=== PATIENT | male | born 1960 | race Caucasian/White ===

== ENCOUNTER 2024-08-17 10:04 | Emergency (ER) | payer MEDICAID, SELFPAY ==
--- NOTE | ~2024-08-17 | CT_ITS ---
EXAMINATION: CT HEAD WITHOUT CONTRAST CLINICAL INFORMATION: Cognitive decline. COMPARISON: None available. TECHNIQUE: Contiguous axial imaging was performed from the skull base to vertex without intravenous administration of contrast. This CT examination was performed using dose optimization techniques as appropriate, variously including the following: *Automated exposure control. *Adjustment of mA and/or kV according to patient size (this includes techniques or standardized protocols for targeted exams where dose is matched to indication/reason for exam; i.e. extremities or head). *Use of iterative reconstruction technique. DLP: 720 mGy-cm FINDINGS: There is no evidence of acute intracranial hemorrhage or edematous territorial infarction. 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 No additional loss of tinsley-white matter differentiation. Scattered and partially confluent hypoattenuation in the periventricular and deep white matter are consistent with mild to moderate microangiopathy. Proportional prominence of the ventricles and sulcal spaces without evidence of obstructive hydrocephalus. No abnormal mass effect or midline shift. No extra-axial fluid collections. No acute soft tissue or osseous abnormalities. Mild mucosal thickening of the paranasal sinuses. Mild rightward nasal septal deviation. The mastoid air cells and middle ear cavities are clear. CT/CT head/brain wo IV con IMPRESSION: 1. No evidence of acute intracranial hemorrhage or edematous territorial infarction. 2. Mild to moderate underlying microangiopathy and generalized cerebral volume loss. 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 Electronically signed by: Victor Manuel Rodriguez DO 08/18/2024 03:38 PM EDT
[2024-08-17 10:52] VITALS: BP 112/91; BP 122/84; PULSE 91; PULSE 92; RESP 16; TEMP 36.7; O2SAT 93; O2SAT 97; BMI 35.9
[2024-08-17 10:56] VITALS: RESP 14
--- NOTE | 2024-08-17 11:19 | ED_ITS ---
HPI - Psych General Chief Complaint: Psychiatric Symptoms Stated Complaint: SI W/PLAN PER EMS Time Seen by Provider: 08/17/24 10:59 Source: patient, EMS and old records reviewed Mode of arrival: EMS Limitations: no limitations History of Present Illness ED Provider: RUSTY LARKIN Narrative: 64 yo male with hypothyroidism, HTN, hyperlipidemia, depression states he is very depressed and is tired. He has SI and plan to walk into traffic. He notes increased life stress. He was seen at [facility] yesterday and DC home after talking to KAPOK MACHINE OPERATOR. MD complaint: suicidal ideation and feels depressed Onset (ago): week(s) Duration: getting worse History of same: Yes Relieving factors: none Exacerbating factors: other Context: significant life stressor Associated psychiatric symptoms: depression and suicidal ideation Associated symptoms: denies other symptoms Treatments prior to arrival: none If self harm: admits thoughts of self harm and has plan Related Data Home Medications ?Medication ?Instructions ?Recorded ?Confirmed albuterol 90 mcg/actuation aerosol 90 mcg inhalation QID PRN 08/17/24 08/17/24 inhaler Shortness Of Breath atorvastatin 40 mg tablet 40 mg PO DAILY 08/17/24 08/17/24 buspirone 15 mg tablet 15 mg PO TID 08/17/24 08/17/24 duloxetine 60 mg capsule,delayed 60 mg PO DAILY 08/17/24 08/17/24 release sprinkle gabapentin 400 mg capsule 400 mg PO TID 08/17/24 08/17/24 levothyroxine 25 mcg tablet 25 mcg PO DAILY 08/17/24 08/17/24 omeprazole 40 mg capsule,delayed 40 mg PO DAILY 08/17/24 08/17/24 release sennosides 8.6 mg tablet (senna) 17.2 mg PO DAILY 08/17/24 08/17/24 umeclidinium 62.5 mcg/actuation 1 inh inhalation DAILY 08/17/24 08/17/24 blister powder for inhalation (Incruse Ellipta) Allergies Allergy/AdvReac Type Severity Reaction Status Date / Time latex Allergy Hives Verified 08/17/24 10:54 Penicillins Allergy Anaphylaxis Verified 08/17/24 10:54 Review of Systems Review of Systems: Constitutional : No Fever, No Chills ENT/Mouth : No Ear Pain, No Nasal Congestion, No sore throat Eyes: No Eye Pain, No Swelling, No Redness Cardiovascular : No Chest Pain, No SOB Respiratory : No Cough, No Sputum, No Dyspnea Gastrointestinal : No Nausea, No Vomiting, No Diarrhea, No Hematochezia, No Melena Genitourinary : No Dysuria, No Urinary Frequency, No Hematuria Musculoskeletal : No Myalgias Skin : No Skin Lesions, No rash Neuro : No Weakness, No Numbness, No Paresthesias, No Dizziness, No Headache Psych : positive Anxiety, positive Depression, positive SI no HI Heme/Lymph: No Lymphadenopathy Endocrine : No Polyuria, No Polydipsia All other systems reviewed and are negative [facility] Past Medical History Attestation statement: The following information was validated with the patient. Source: old records reviewed Medical History (Updated 08/17/24 @ 11:32 by Karime Kaye DO) Hypothyroidism Depression Hyperlipidemia HTN (hypertension) Social History Social History Smoked in Last 30 Days: No Use of substances other than those prescribed or required for medical reasons: No Physical Exam Vital Signs: Vital Signs: Last Vital Signs Temp 98.0 F 08/17/24 10:52 Pulse 92 08/17/24 10:52 Resp 14 08/17/24 10:56 BP 112/91 H 08/17/24 10:52 Pulse Ox 93 08/17/24 10:52 O2 Del Method Room Air 08/17/24 10:52 BMI result Body Mass Index 35.9 Appearance: Alert. Oriented X3. No acute distress. Flat affect, withdrawn Eyes: Pupils equal, round and reactive to light. ENT: Pharynx normal. Neck: Normal inspection. Neck supple. CVS: Normal heart rate and rhythm. Pulses normal. Respiratory: No respiratory distress. Breath sounds normal. Abdomen: Soft and nontender. Skin: Skin warm and dry. Normal skin color. Normal skin turgor. Extremities: non pitting edema bilateral lower extremity No calf ttp Neuro: Oriented X 3. No motor deficit. No sensory deficit. CN2-12 intact Medical Decision Making Medical Decision Making MDM Narrative: 64 yo male with hypothyroidism, HTN, hyperlipidemia, depression here with depression and SI due to life stressors at this time will need basic labs, CARE team consult Differential Diagnosis Differential Diagnoses: The differential diagnosis associated with the presentation includes depression, poor social support SI Admission/Observation Consideration of admission/observation: Escalation of care including admission/observation considered physician observation started at 1130 pending CARE team Consult Healthcare Provider Management of the patient was discussed with: Behavioral Health Provider Lab Data MDM Lab Attestation statement: I reviewed the patient's lab results. Independent Historian Clinical information obtained from an independent historian. History obtained from or confirmed by: EMS External Record Review External record reviewed: Outpatient record Discharge Plan Discharge Clinical Impression: Depression Patient Disposition: Admitted As Inpatient Interventions: [place]-Suicide Risk Severity Scale Last Done: 08/17/24 10:57
--- NOTE | 2024-08-17 11:30 | PC.NURSE ---
Sudheer comes to the ED today reporting SI with a plan to walk into oncoming traffic. he reports that he recently lost his dad within the last year and has had other stressors that have caused him to have these suicidal thoughts. he reports he went to [facility] yesterday for the same chief complaint but was discharged back home. he denies any homicidal ideation or hallucinations at this time. Pt is calm and cooperative, help seeking. Pt verbalizes understanding of plan of care at this time
[2024-08-17 11:33] LABS: MANUAL DIFF FLAG NO
[2024-08-17 11:36] LABS: Appearance Urine Clear; Color Urine Yellow; Glucose Urine UA Negative (Negative); Leukocyte Esterase Urine Negative (Negative); Nitrite Urine Negative (Negative); PH 7.5 (5.0-9.0); Urine Blood Negative (Negative); Urine Ketones Negative (Negative); Urine Protein Negative (Neg-Trace)
[2024-08-17 11:42] LABS: Basophils Percent Auto 0.4 % (0-2); Eosinophils Absolute Auto 0.1 X10*3/uL (0.0-0.4); Eosinophils Percent Auto 1.1 % (0-4); Hematocrit 35.2 % (42.0-52.0); Hemoglobin 11.5 g/dl (14.0-18.0); Imm Gran Abs Auto 0.03 X10*3/uL (0.00-0.03); Imm Gran Pct Auto 0.5 % (0.0-0.4); Lymphocytes Absolute Auto 1.1 X10*3/uL (1.2-4.9); Lymphocytes Percent Auto 19.1 % (20-40); Mean Corpuscular HGB Conc 32.7 g/dl (31.0-36.0); Mean Corpuscular Hemoglobin 30.5 pg (27.0-33.0); Mean Corpuscular Volume 93.4 fL (80.0-98.0); Mean Platelet Volume 9.2 fL (9.4-12.4); Monocytes Absolute Auto 0.6 X10*3/uL (0.1-1.2); Monocytes Percent Auto 10.1 % (2-11); Neutrophils Absolute Auto 3.8 x10*3/uL (2.0-8.3); Neutrophils Percent Auto 68.8 % (45-73); Platelet Count 210 X10*3/uL (160-400); Red Blood Count 3.77 X10*6/uL (4.60-5.80); Red Cell Distribution Width 12.6 % (11.0-16.0); White Blood Count 5.6 X10*3/uL (4.8-10.8)
[2024-08-17 11:53] LABS: Alanine Aminotransferase 19 U/L (0-40); Alkaline Phosphatase 56 U/L (39-117); Anion Gap 11 (12-20); Aspartate Amino Transferase 19 U/L (5-37); Bilirubin Total 1.1 mg/dL (0.0-1.0); Blood Urea Nitrogen 17 mg/dL (9-16); Calcium 9.3 mg/dL (8.4-10.2); Carbon Dioxide 30 mmol/L (22-29); Chloride 103 mmol/L (96-108); Creatinine Clr Calc Pharmacy 109.5; Estimated Glomerular Filt Rate > 60; Ethanol < 10 mg/dL; Glucose Random 98 mg/dL (60-115); Potassium 4.5 mmol/L (3.3-5.1); Sodium 139 mmol/L (135-145); Total Protein 6.8 g/dL (6.5-8.0)
[2024-08-17 11:55] LABS: Amphetamine Screen Urine Not Detected (Not Detect); Barbiturates, Urine Not Detected (Not Detect); Benzodiazepines Screen Urine Not Detected (Not Detect); Buprenorphine Scr Not Detected (Not Detect); Cannabinoid Screen Urine Not Detected (Not Detect); Cocaine Screen Urine Not Detected (Not Detect); Fentanyl, urine Not Detected (Not Detect); Methadone Screen, Urine Not Detected (Not Detect); Opiate Screen Urine Not Detected (Not Detect); Oxycodone Screen Urine Not Detected (Not Detect); Phencyclidine Screen Urine Not Detected (Not Detect)
[2024-08-17 14:20] LABS: TSH reflex Free T4 1.87 uIU/mL (0.32-4.0)
--- NOTE | 2024-08-17 15:29 | MHC.CARE ---
Assessed by CARE team, following discussion with CARE service team leader Yvrose TEAGUE, plan for patient to be referred for psych consult given recent +3 month long admission to [facility].
--- NOTE | 2024-08-17 16:02 | MHC.CARE ---
A SANJUANA for [facility] has been signed by patient and is in his chart.
[2024-08-17 20:33] VITALS: BP 140/79; PULSE 79; RESP 18; TEMP 36.9; O2SAT 95
--- NOTE | 2024-08-17 23:23 | PC.NURSE ---
Took over for TSERING lal, pt sleeping at this time.
--- NOTE | 2024-08-18 04:11 | PC.NURSE ---
pt out of bed to bathroom, quiet and cooperative.
[2024-08-18 05:19] VITALS: BP 147/78; PULSE 78; RESP 18; TEMP 36.6; O2SAT 95
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
--- NOTE | 2024-08-18 08:45 | PHA.MEDREC ---
Pharmacy Consult ? Medication Reconciliation Pharmacy has completed the medication reconciliation.RN completed med rec , pharmacy reviewed per claim history.
--- NOTE | 2024-08-18 11:07 | PC.NURSE ---
This RN took assignment at 9am. Pt has been sleeping since. chest rise noted. tray at bedside is untouched.
[2024-08-18] MEDS: busPIRone HCl 5 MG TABLET 15 MG PO ×2 (13:20→21:26)
[2024-08-18] MEDS: Tiotropium Bromide 2.5 mcg 1 PUFF/2.5 MCG MIST.INHAL 2 PUFF INHALE (13:20)
[2024-08-18] MEDS: Gabapentin 400 MG CAPSULE PO ×2 (13:20→21:26)
[2024-08-18] MEDS: DULoxetine HCl 60 MG CAPSULE.DR PO (13:31)
[2024-08-18] MEDS: Sennosides 8.6 MG TABLET 17.2 MG PO (13:31)
[2024-08-18] MEDS: Levothyroxine Sodium 25 MCG TABLET PO (13:31)
[2024-08-18] MEDS: Omeprazole 40 MG CAPSULE.DR PO (13:31)
[2024-08-18] MEDS: Atorvastatin Calcium 40 MG TABLET PO (13:31)
--- NOTE | 2024-08-18 13:36 | PC.NURSE ---
Pt woke about an hour ago. Admitts to increased life stressors, is steady on feet. Now speaking with Lucila COLES
--- NOTE | 2024-08-18 13:41 | P.CNPS_ITS ---
History of Present Illness Date of Service: 08/18/2024 Chief Complaint: SI W/PLAN PER EMS Reason for Consult: inability to care for himself Sources of Information: patient interviewed, chart reviewed and crisis/core team assessment reviewed Additional Sources of Information: Dr. Cooper [facility] Narrative: Mr. Linn is a 64 year-old male with unclear psychiatric history who was brought via EMS from [facility] after he called reporting suicidal ideation with plan to walk into streets. Pt was recently discharged from [facility] after a 4 month long admission. He was discharged to longterm, [facility]. He did not find a bed, then went to [facility], from there he called 911 reporting suicidal ideation in context of not having stable housing. Utox was negative. BAL was also negative. Collateral information was gathered from Dr. Kanu Otoole who treated Mr. Linn while a [facility]. Dr. Muñoz reports pt initially was admitted for alcohol use disorder and related alcohol hallucinosis. Once he was cleared, he was started on cymbalta for depression also with thought of helping with neuropathic pain. Per. Dr. Muñoz, pt did not present with psychotic symptoms outside of withdrawal symptoms. They tried to referred him to sober house but he was not accepted. Finally pt was discharged to longterm with community support person to help him navigate housing resources. He appeared to not be able to function without significant support. Pt seen in the ED. He presents as malodorous. He is cooperative. He reports he was at psychiatric hospital for mental illness. He is not able to tell this data analyst report writer what dx he has. He does report that prior to going to he was drinking about a gallon daily. He reports intermittent cravings to use alcohol but he is trying not to use. He denies visual or auditory hallucinations and does not appear internally preoccupied. He does not present with overt signs of delusions. He reports sleeping well for the most part. He reports conditional suicidality if not having stable place to be. He reports he is trying to save money to get apartment and if he stays at a hotel he will not be able to do this. When asked about the month he reports it is April. He does know the place, year and situation. He does seem to struggle to provide more information about his psychiatric history or his medical hx. He reports problems retaining information. Past Psychiatric History: Inpt: [facility] OP: none Past medication trials: cymbalta, sertraline Medical Evaluation Reviewed: Yes [facility] Medical History (Updated 08/18/24 @ 15:23 by Lucila Parekh NP) Hypothyroidism Depression Hyperlipidemia HTN (hypertension) Diagnostics Vital Signs (24Hr): Vital Signs - 24 hr 08/17/24 20:33 08/18/24 05:19 Temperature 98.4 F 97.8 F Pulse Rate 79 78 Respiratory Rate 18 18 Blood Pressure 140/79 H 147/78 H Pulse Oximetry 95 95 Oxygen Delivery Method Room Air Room Air BMI result Body Mass Index 35.9 Labs 08/17/24 11:18 08/17/24 11:18 Labs: Laboratory Results - last 48 hr 08/17/24 08/17/24 11:14 11:18 WBC 5.6 RBC 3.77 L Hgb 11.5 L Hct 35.2 L MCV 93.4 MCH 30.5 MCHC 32.7 RDW 12.6 Plt Count 210 MPV 9.2 L Immature Gran % (Auto) 0.5 H Neut % (Auto) 68.8 Lymph % (Auto) 19.1 L Pitkin % (Auto) 10.1 Eos % (Auto) 1.1 Baso % (Auto) 0.4 Lymph # (Auto) 1.1 L Pitkin # (Auto) 0.6 Eos # (Auto) 0.1 Baso # (Auto) 0.0 Abs Immat Gran (auto) 0.03 Absolute Neuts (auto) 3.8 Absolute Nucleated RBC 0.000 Nucleated RBC % (auto) 0.0 Sodium 139 Potassium 4.5 Chloride 103 Carbon Dioxide 30 H Anion Gap 11 L BUN 17 H Creatinine 0.87 Estim Creat Clear Calc 109.5 Estimated GFR > 60 Random Glucose 98 Calcium 9.3 Total Bilirubin 1.1 H AST 19 ALT 19 Alkaline Phosphatase 56 Total Protein 6.8 Albumin 4.0 TSH 1.87 Urine Color Yellow Urine Appearance Clear Urine pH 7.5 Ur Specific Genesee 1.020 Urine Protein Negative Urine Glucose (UA) Negative Urine Ketones Negative Urine Blood Negative Urine Nitrite Negative Ur Leukocyte Esterase Negative Urine Opiates Screen Not Detected Ur Buprenorphine Scrn Not Detected Ur Oxycodone Screen Not Detected Urine Methadone Screen Not Detected Urine Fentanyl Screen Not Detected Ur Barbiturates Screen Not Detected Ur Phencyclidine Scrn Not Detected Ur Amphetamines Screen Not Detected U Benzodiazepines Scrn Not Detected Urine Cocaine Screen Not Detected U Marijuana (THC) Screen Not Detected Ethyl Alcohol < 10 Mental Status Exam Mental Status Exam Narrative: Appearance: wearing hospital gown, MO, poor hygiene, malodorous, in NAD Behavior: cooperative Psychomotor: no agitation or retardation noted Speech: clear, normal rate/rhythm/volume, spontaneous TP: mostly linear, poverty of thought TC: wanting help with housing Mood: anxious Affect: constricted SI: none HI: none VH/AH: none Delusional: none Insight/judgment: poor x 2 Memory/cog: alert, oriented to place, year, situation but not month. Pending MOCA/ACL. Medications Medications Current Medications Albuterol Sulfate (Albuterol Sulfate 90 Mcg 8 Gm Inhaler) 90 puff INHALE QID PRN PRN Reason: Shortness Of Breath Atorvastatin Calcium (Atorvastatin Calcium 40 Mg Tablet) 40 mg PO DAILY [facility] Last Admin: 08/18/24 13:31 Dose: 40 mg Buspirone HCl (Buspirone Hcl 5 Mg Tablet) 15 mg PO TID [facility] Last Admin: 08/18/24 13:20 Dose: 15 mg Duloxetine HCl (Duloxetine Hcl 60 Mg Capsule.) 60 mg PO DAILY [facility] Last Admin: 08/18/24 13:31 Dose: 60 mg Gabapentin (Gabapentin 400 Mg Capsule) 400 mg PO TID [facility] Last Admin: 08/18/24 13:20 Dose: 400 mg Levothyroxine Sodium (Levothyroxine Sodium 25 Mcg Tablet) 25 mcg PO DAILY@0630 [facility] Last Admin: 08/18/24 13:31 Dose: 25 mcg Omeprazole (Omeprazole 40 Mg Capsule.) 40 mg PO DAILY@0630 [facility] Last Admin: 08/18/24 13:31 Dose: 40 mg Senna (Sennosides 8.6 Mg Tablet) 17.2 mg PO DAILY [facility] Last Admin: 08/18/24 13:31 Dose: 17.2 mg Tiotropium Melrose (Tiotropium Melrose 2.5 Mcg 1 Puff/2.5 Mcg Mist.Inhal) 2 puff INHALE RDAILY [facility] Last Admin: 08/18/24 13:20 Dose: 2 puff Allergies Allergies Allergy/AdvReac Type Severity Reaction Status Date / Time latex Allergy Hives Verified 08/17/24 10:54 Penicillins Allergy Anaphylaxis Verified 08/17/24 10:54 Assessment & Plan Assessment & Plan (1) MDD (major depressive disorder), recurrent episode, moderate: Status: Acute Code(s): F33.1 - Major depressive disorder, recurrent, moderate (2) Alcohol use disorder, moderate, dependence: Status: Acute Code(s): F10.20 - Alcohol dependence, uncomplicated Plan Mr. Linn is a 64 year-old male who was recently discharged after a 4-month inpatient admission at [facility]. It appears he initially was admitted for alcohol withdrawal with alcoholic hallucinosis, but once alcohol withdrawal resolved, there were no signs of psychosis. He does seem to have limited abilities to problem solve and has depended on others to be able to meet basic needs. He currently does not present with ANY acute psychiatric symptoms requiring inpatient psych admission. Will assess his memory and cognition as to his ability to care for himself. He can work with case management for placement. he does have monthly income from [employer]. Will also order head CT. He does have parkinsonism- resting tremors, decrease blinking, mask-like facial expression, ?parkinson's. We discussed adding naltrexon to decrease alcohol cravings. PLAN 1. no need for inpt psych admission 2. referred to case management for assistance for placement. 3. in the meantime- will assess his memory and cognition- ordered OT MOCA and ACL. Pt not oriented to month and unable to provide much details as to his history. Head CT, will check b12, folate, TSH Total time managing care of this patient today ____ minutes.
[2024-08-18] MEDS: Ibuprofen 600 MG TABLET PO (14:51)
[2024-08-18] MEDS: Naltrexone HCl 50 MG TABLET PO (17:30)
[2024-08-18 18:06] VITALS: BP 131/68; PULSE 77; RESP 16; TEMP 36.7; O2SAT 96
--- NOTE | 2024-08-18 19:05 | MHC.CM.ED ---
CM reviewed medical record, CARE team assessment and psychiatry instructor assessment. Pt cleared for inpatient psych admission. Per Lucila MICA PASTER, MOCA and ACL pending to assess patients ability to live safely on his own. Scoring will determine if patient has capacity and will need placement. No HCP. Pt has no real family ties. His mother lives in [place] and cannot help him. Pt is homeless. Concerns that patient is not capable of navigating homeless shelters. CM spoke with patient. He was initially guarded, however did share his medical concerns. Pt tells CM that he cannot care for himself and has no where to live. Pt thinks he may need to live in a penitentiary. Pt has a long standing psych and ETOH misuse history. Pt was very cooperative. CM explained that he will have testing to determine his ability to live on his own. Pt is agreeble. Pt is aware that he will remain in the hospital until testing is completed and a safe discharge plan can be made. Pending MOCA/ACL, patient may need placement. CM will follow for discharge planning.
--- NOTE | 2024-08-18 19:35 | PC.NURSE ---
patient appears to remain at rest p[resently respiraionts are even and unlabored patient appears in no distress.
[2024-08-19 00:26] VITALS: BP 113/64; PULSE 88; RESP 16; TEMP 36.5; O2SAT 98
[2024-08-19] MEDS: busPIRone HCl 5 MG TABLET 15 MG PO ×3 (08:16→20:01)
[2024-08-19] MEDS: DULoxetine HCl 60 MG CAPSULE.DR PO (08:16)
[2024-08-19] MEDS: Naltrexone HCl 50 MG TABLET PO (08:16)
[2024-08-19] MEDS: Omeprazole 40 MG CAPSULE.DR PO (09:06)
[2024-08-19] MEDS: Atorvastatin Calcium 40 MG TABLET PO (09:06)
[2024-08-19] MEDS: Levothyroxine Sodium 25 MCG TABLET PO (09:06)
[2024-08-19] MEDS: Sennosides 8.6 MG TABLET 17.2 MG PO (09:06)
[2024-08-19] MEDS: Tiotropium Bromide 2.5 mcg 1 PUFF/2.5 MCG MIST.INHAL 2 PUFF INHALE (09:08)
[2024-08-19] MEDS: Gabapentin 400 MG CAPSULE PO ×3 (09:08→20:01)
[2024-08-19 13:51] VITALS: BP 136/80; PULSE 73; RESP 16; TEMP 36.4; O2SAT 95
--- NOTE | 2024-08-19 14:51 | PC.NURSE ---
has been resting in room, ambulating to the bathroom independently. able to make needs known, no complaints at this time.
--- NOTE | 2024-08-19 17:15 | PC.NURSE ---
Pt has been resting in bed since this RN arrival at 3p. Able to state needs. No foul odors.
[2024-08-19 23:46] VITALS: BP 140/84; PULSE 76; RESP 16; TEMP 36.8; O2SAT 94
--- NOTE | 2024-08-20 03:54 | PC.NURSE ---
recently up ad reina to rest room
[2024-08-20 08:00] VITALS: BP 91/56; PULSE 92; RESP 18; TEMP 36.9; O2SAT 94
[2024-08-20] MEDS: busPIRone HCl 5 MG TABLET 15 MG PO ×3 (08:15→20:02)
[2024-08-20] MEDS: Naltrexone HCl 50 MG TABLET PO (08:15)
[2024-08-20] MEDS: Gabapentin 400 MG CAPSULE PO ×3 (08:15→20:02)
[2024-08-20] MEDS: DULoxetine HCl 60 MG CAPSULE.DR PO (08:15)
[2024-08-20] MEDS: Sennosides 8.6 MG TABLET 17.2 MG PO (10:01)
[2024-08-20] MEDS: Levothyroxine Sodium 25 MCG TABLET PO (10:01)
[2024-08-20] MEDS: Omeprazole 40 MG CAPSULE.DR PO (10:01)
[2024-08-20] MEDS: Tiotropium Bromide 2.5 mcg 1 PUFF/2.5 MCG MIST.INHAL 2 PUFF INHALE (10:01)
[2024-08-20] MEDS: Atorvastatin Calcium 40 MG TABLET PO (10:01)
--- NOTE | 2024-08-20 10:10 | MHC.CM.ED ---
Patient remains in ER BH pod. Waiting for MOCA and ACL to be conducted to determine if patient has capacity to make his own decisions. Continue to monitor for d/c needs.
[2024-08-20 18:20] VITALS: PULSE 100; RESP 18; TEMP 36.3; O2SAT 95
--- NOTE | 2024-08-20 19:06 | PC.NURSE ---
patient appears to remain at rest presently respirations are even and unlabored patient appears in no distress
[2024-08-21 06:00] VITALS: BP 100/59; PULSE 73; RESP 16; TEMP 36.6; O2SAT 93
[2024-08-21] MEDS: Levothyroxine Sodium 25 MCG TABLET PO (06:12)
[2024-08-21] MEDS: Omeprazole 40 MG CAPSULE.DR PO (06:12)
[2024-08-21] MEDS: DULoxetine HCl 60 MG CAPSULE.DR PO (09:19)
[2024-08-21] MEDS: Gabapentin 400 MG CAPSULE PO ×3 (09:19→21:33)
[2024-08-21] MEDS: Tiotropium Bromide 2.5 mcg 1 PUFF/2.5 MCG MIST.INHAL 2 PUFF INHALE (09:20)
[2024-08-21] MEDS: Naltrexone HCl 50 MG TABLET PO (09:20)
[2024-08-21] MEDS: busPIRone HCl 5 MG TABLET 15 MG PO ×3 (09:20→21:33)
[2024-08-21] MEDS: Sennosides 8.6 MG TABLET 17.2 MG PO (09:34)
[2024-08-21] MEDS: Atorvastatin Calcium 40 MG TABLET PO (09:34)
--- NOTE | 2024-08-21 09:55 | MHC.CM.PN ---
CM/PSYCH PROVIDER STILL AWAITING MOCA/ACL TO BE COMPLETED, CM WILL CONT TO FOLLOW.
[2024-08-21 15:09] VITALS: RESP 16
--- NOTE | 2024-08-21 16:29 | PC.NURSE ---
pt continues to rest comfortably in bed throughout the day in no apparent distress. has been calm and cooperative throughout shift. has no complaints. makes needs known. pt had OT evaluation completed earlier throughout the day. see patient care notes. pt continues to wait for psychiatry consult at this time. plan of care ongoing.
--- NOTE | 2024-08-21 19:24 | PC.NURSE ---
Report from Arlene CAGLE. Patient currently in bed sleeping, respirations even and unlabored.
[2024-08-21 21:29] VITALS: BP 138/93; PULSE 84; RESP 16; TEMP 36.8; O2SAT 95
[2024-08-22] MEDS: Levothyroxine Sodium 25 MCG TABLET PO (05:36)
[2024-08-22] MEDS: Omeprazole 40 MG CAPSULE.DR PO (05:36)
[2024-08-22 06:00] VITALS: BP 131/79; PULSE 65; RESP 14; TEMP 37; O2SAT 94
--- NOTE | 2024-08-22 07:29 | PC.NURSE ---
Assumed care of patient at 0645, patient appears to be in no apparent distress this am, calm and cooperative, reporting moderate headache. MD Min aware pt is asking for medication for headache. Continue plan of care for PT/CM follow up
[2024-08-22] MEDS: Ibuprofen 600 MG TABLET PO (08:00)
[2024-08-22] MEDS: Naltrexone HCl 50 MG TABLET PO (08:00)
[2024-08-22] MEDS: Tiotropium Bromide 2.5 mcg 1 PUFF/2.5 MCG MIST.INHAL 2 PUFF INHALE (08:00)
[2024-08-22] MEDS: Gabapentin 400 MG CAPSULE PO ×3 (08:00→20:07)
[2024-08-22] MEDS: Atorvastatin Calcium 40 MG TABLET PO (08:00)
[2024-08-22] MEDS: Sennosides 8.6 MG TABLET 17.2 MG PO (08:00)
[2024-08-22] MEDS: DULoxetine HCl 60 MG CAPSULE.DR PO (08:01)
[2024-08-22] MEDS: busPIRone HCl 5 MG TABLET 15 MG PO ×3 (08:01→20:07)
[2024-08-22 14:00] VITALS: RESP 16
--- NOTE | 2024-08-22 16:00 | MHC.CM.ED ---
Pt holding in ED BH pod: MOCA score of 22 indicating impairment: No HCP on file: pt states he does not have one. ? pt needing guardianship for placement. Pt has Medicaid for a payor: will discuss situation w/CM director for guidance on potential for guardian petition. No referrals made at this time. ED CM to follow
--- NOTE | 2024-08-22 17:15 | PC.NURSE ---
BELONGINGS MOVED TO LOCKER 1
[2024-08-22 20:12] VITALS: BP 140/69; PULSE 65; RESP 16; TEMP 36.7; O2SAT 95
--- NOTE | 2024-08-22 23:29 | PC.NURSE ---
took over care from TSERING Marshall, pt oob to bathroom and now back in room.
--- NOTE | 2024-08-23 01:02 | PC.NURSE ---
pt oob to [facility]
--- NOTE | 2024-08-23 02:25 | PC.NURSE ---
pt sleeping at this time.
[2024-08-23] MEDS: Levothyroxine Sodium 25 MCG TABLET PO (06:04)
[2024-08-23] MEDS: Omeprazole 40 MG CAPSULE.DR PO (06:04)
--- NOTE | 2024-08-23 06:06 | PC.NURSE ---
medicated per mar,
[2024-08-23] MEDS: Gabapentin 400 MG CAPSULE PO ×3 (08:46→20:11)
[2024-08-23] MEDS: busPIRone HCl 5 MG TABLET 15 MG PO ×3 (08:46→20:11)
[2024-08-23] MEDS: DULoxetine HCl 60 MG CAPSULE.DR PO (08:46)
[2024-08-23] MEDS: Naltrexone HCl 50 MG TABLET PO (08:46)
[2024-08-23] MEDS: Tiotropium Bromide 2.5 mcg 1 PUFF/2.5 MCG MIST.INHAL 2 PUFF INHALE (08:46)
[2024-08-23] MEDS: Atorvastatin Calcium 40 MG TABLET PO (09:31)
[2024-08-23] MEDS: Sennosides 8.6 MG TABLET 17.2 MG PO (09:31)
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
[2024-08-23] MEDS: Nicotine 21 MG PATCH.TD24 TRANSDERMA (10:58)
--- NOTE | 2024-08-23 12:22 | PM.PSYCN ---
History of Present Illness Date of Service: 08/23/2024 Chief Complaint: SI W/PLAN PER EMS Discussed with referring provider: Yes Sources of Information: patient interviewed, chart reviewed and crisis/core team assessment reviewed HPI Narrative: Interim Hx: Pt seen for a follow up. He has been calm, no behavioral issues. He did meet with case management this morning. He apparently identify his mother as potential HCP, but then refused to sign HCP. I asked him about this incident and pt reports he did not realize he had to sign the form. We discuss placement and working with case management. He seemed confused as to options he has declined, which we discussed they have to find first available and be open to go different places in the state. He continues to denie SI/HI. He denies cravings to use alcohol use. MOCA was completed with most impairments in executive function, visuo spatial, recall. Language repetition, naming and fluency mostly intact. Seems vascular pattern of cognitive impairment. In addition he does seem like significant inability to problem solve which affects his ability to secure housing. Reviewed head CT which shows overall atrophy, microvascular changes and bilateral globus pallidus infarts. Past Psychiatric History: Inpt: [facility] OP: none Past medication trials: cymbalta, sertraline [facility] Medical History (Updated 08/23/24 @ 13:44 by Lucila Parekh NP) Hypothyroidism Depression Hyperlipidemia HTN (hypertension) Diagnostics Vital Signs (24Hr): Vital Signs - 24 hr 08/22/24 14:00 08/22/24 20:12 Temperature 98.1 F Pulse Rate 65 Respiratory Rate 16 16 Blood Pressure 140/69 H Pulse Oximetry 95 Oxygen Delivery Method Room Air BMI result Body Mass Index 35.9 Labs 08/17/24 11:18 08/17/24 11:18 Imaging Radiology Impressions: ITS Impressions Head CT 08/18/24 14:59 IMPRESSION: 1. No evidence of acute intracranial hemorrhage or edematous territorial infarction. 2. Mild to moderate underlying microangiopathy and generalized cerebral volume loss. 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 Electronically signed by: Victor Manuel Rodriguez DO 08/18/2024 03:38 PM EDT Mental Status Exam Mental Status Exam Narrative: Appearance: wearing hospital gown, MO, poor hygiene, malodorous, in NAD Behavior: cooperative Psychomotor: no agitation or retardation noted Speech: clear, normal rate/rhythm/volume, spontaneous TP: mostly linear, poverty of thought TC: wanting help with housing Mood: anxious Affect: constricted SI: none HI: none VH/AH: none Delusional: none Insight/judgment: poor x 2 Memory/cog: alert, oriented to place, year, situation but not month. MOCA 22/30- Medications Medications Current Medications Albuterol Sulfate (Albuterol Sulfate 90 Mcg 8 Gm Inhaler) 90 puff INHALE QID PRN PRN Reason: Shortness Of Breath Atorvastatin Calcium (Atorvastatin Calcium 40 Mg Tablet) 40 mg PO DAILY [facility] Last Admin: 08/23/24 09:31 Dose: 40 mg Buspirone HCl (Buspirone Hcl 5 Mg Tablet) 15 mg PO TID [facility] Last Admin: 08/23/24 08:46 Dose: 15 mg Duloxetine HCl (Duloxetine Hcl 60 Mg Capsule.) 60 mg PO DAILY [facility] Last Admin: 08/23/24 08:46 Dose: 60 mg Gabapentin (Gabapentin 400 Mg Capsule) 400 mg PO TID [facility] Last Admin: 08/23/24 08:46 Dose: 400 mg Levothyroxine Sodium (Levothyroxine Sodium 25 Mcg Tablet) 25 mcg PO DAILY@0630 [facility] Last Admin: 08/23/24 06:04 Dose: 25 mcg Naltrexone HCl (Naltrexone Hcl 50 Mg Tablet) 50 mg PO DAILY [facility] Last Admin: 08/23/24 08:46 Dose: 50 mg Nicotine (Nicotine 21 Mg Patch.Td24) 21 mg TRANSDERMA DAILY [facility] Last Admin: 08/23/24 10:58 Dose: 21 mg Omeprazole (Omeprazole 40 Mg Capsule.) 40 mg PO DAILY@0630 [facility] Last Admin: 08/23/24 06:04 Dose: 40 mg Senna (Sennosides 8.6 Mg Tablet) 17.2 mg PO DAILY [facility] Last Admin: 08/23/24 09:31 Dose: 17.2 mg Tiotropium [place] (Tiotropium [place] 2.5 Mcg 1 Puff/2.5 Mcg Mist.Inhal) 2 puff INHALE RDAILY [facility] Last Admin: 08/23/24 08:46 Dose: 2 puff Allergies Allergies Allergy/AdvReac Type Severity Reaction Status Date / Time latex Allergy Hives Verified 08/17/24 10:54 Penicillins Allergy Anaphylaxis Verified 08/17/24 10:54 Assessment & Plan Assessment & Plan (1) MDD (major depressive disorder), recurrent episode, moderate: Status: Acute Code(s): F33.1 - Major depressive disorder, recurrent, moderate (2) Alcohol use disorder, moderate, dependence: Status: Acute Code(s): F10.20 - Alcohol dependence, uncomplicated (3) Mild cognitive impairment: Status: Acute Code(s): G31.84 - Mild cognitive impairment of uncertain or unknown etiology Plan Mr. Linn is a 64 year-old male with hx of alcohol use in remission who self presented in context of increased anxiety secondary to inability to find housing. Pt recently discharged from prolonged inpt admission at [facility]. Pt presents with some degree of cognitive impairments of vascular type affecting his ability to retain information, executive and visuospatial impairments as well as ability to retain new information. He had MOCA 22/30. His Head CT does show atrophy and microvascular changes as well as bilat global palludus infarct. His ability to reason is poor. One one hand he is aware he struggles with following up and obtaining services he needs, but also declines at times help. He seems to get confused easily when information is given to him. PLAN 1. continue working with case management. He does have capacity to appoint HCP. More complex information he may not be able to fully understand or retain. Total time managing care of this patient today ____ minutes.
[2024-08-23] MEDS: traMADoL HCL 50 MG TABLET 25 MG PO (17:34)
[2024-08-23] MEDS: Acetaminophen 325 MG TABLET 650 MG PO (17:35)
--- NOTE | 2024-08-23 19:14 | PC.NURSE ---
patient appears to remain at rest presently respirations are even and unlabored patient appears in no distress.
[2024-08-23 19:50] LABS: Cholesterol 139 mg/dL (<200); HDL Cholesterol 54 mg/dL (>40); LDL Cholesterol Calculated 71 mg/dL (<100); Triglycerides 72 mg/dL (<150)
[2024-08-23] MEDS: Ibuprofen 800 MG TABLET PO (20:11)
[2024-08-23 20:14] VITALS: BP 138/95; PULSE 78; RESP 20; TEMP 36.8; O2SAT 95
[2024-08-23 20:24] LABS: Folate 9.1 ng/mL (> or = 4.0); Vitamin B12 534 pg/mL (200-900)
[2024-08-23 23:31] VITALS: BP 140/83; PULSE 56; RESP 16; O2SAT 95
[2024-08-24] MEDS: Levothyroxine Sodium 25 MCG TABLET PO (05:59)
[2024-08-24] MEDS: Omeprazole 40 MG CAPSULE.DR PO (05:59)
--- NOTE | 2024-08-24 06:08 | PC.NURSE ---
PT MOVED TO ED18 FROM POD. NO COMPLAINTS. PT IS PLEASANT RESTING COMFORTABLY IN STRETCHER. TOOK 0630 MEDS. ELOPEMENT WRISTBAND PLACED WITH [facility] TECHNICIAN A PRECAUTION. CALL [facility] WITHIN REACH.
[2024-08-24 07:19] LABS: Estimated Average Glucose 103 mg/dL; Hemoglobin A1c % 5.2 % (<6.0); Total Hemoglobin (HGBA1C) 3364.4056 umol/L
[2024-08-24] MEDS: Tiotropium Bromide 2.5 mcg 1 PUFF/2.5 MCG MIST.INHAL 2 PUFF INHALE (08:03)
[2024-08-24] MEDS: busPIRone HCl 5 MG TABLET 15 MG PO ×3 (08:04→21:18)
[2024-08-24] MEDS: Naltrexone HCl 50 MG TABLET PO (08:04)
[2024-08-24] MEDS: Gabapentin 400 MG CAPSULE PO ×3 (08:05→21:18)
[2024-08-24] MEDS: Atorvastatin Calcium 40 MG TABLET PO (08:05)
[2024-08-24] MEDS: Sennosides 8.6 MG TABLET 17.2 MG PO (08:05)
[2024-08-24] MEDS: Nicotine 21 MG PATCH.TD24 TRANSDERMA (08:07)
[2024-08-24] MEDS: DULoxetine HCl 60 MG CAPSULE.DR PO (08:08)
--- NOTE | 2024-08-24 09:28 | PM.NEUROCN ---
History of Present Illness Data of Consult Service Date: 08/24/24 Primary Care Provider: 64 years old man in emergency room for psychiatric symptoms I was asked to see for possibility of Parkinson's. He was in emergency room for depression suicidal ideation. Not clear if he has any previous history of exposure to antipsychotics or dopamine depleting drugs. HPI Reason for consult: Tremor Review of Systems Review of Systems: Depression PMFSH Past Medical History Medical History (Updated 08/24/24 @ 08:59 by Perla Atkins) Hypothyroidism Depression Hyperlipidemia HTN (hypertension) Social History Social History Smoked in Last 30 Days: No Use of substances other than those prescribed or required for medical reasons: No Advance Directives: No Advance Directives Information Provided: Yes Meds Allergies Allergy/AdvReac Type Severity Reaction Status Date / Time latex Allergy Hives Verified 08/17/24 10:54 Penicillins Allergy Anaphylaxis Verified 08/17/24 10:54 Active Medications: Current Medications Albuterol Sulfate (Albuterol Sulfate 90 Mcg 8 Gm Inhaler) 90 puff INHALE QID PRN PRN Reason: Shortness Of Breath Atorvastatin Calcium (Atorvastatin Calcium 40 Mg Tablet) 40 mg PO DAILY [facility] Last Admin: 08/24/24 08:05 Dose: 40 mg Buspirone HCl (Buspirone Hcl 5 Mg Tablet) 15 mg PO TID [facility] Last Admin: 08/24/24 08:04 Dose: 15 mg Duloxetine HCl (Duloxetine Hcl 60 Mg Capsule.) 60 mg PO DAILY [facility] Last Admin: 08/24/24 08:08 Dose: 60 mg Gabapentin (Gabapentin 400 Mg Capsule) 400 mg PO TID [facility] Last Admin: 08/24/24 08:05 Dose: 400 mg Levothyroxine Sodium (Levothyroxine Sodium 25 Mcg Tablet) 25 mcg PO DAILY@0630 [facility] Last Admin: 08/24/24 05:59 Dose: 25 mcg Naltrexone HCl (Naltrexone Hcl 50 Mg Tablet) 50 mg PO DAILY [facility] Last Admin: 08/24/24 08:04 Dose: 50 mg Nicotine (Nicotine 21 Mg Patch.Td24) 21 mg TRANSDERMA DAILY [facility] Last Admin: 08/24/24 08:07 Dose: 21 mg Omeprazole (Omeprazole 40 Mg Capsule.) 40 mg PO DAILY@0630 [facility] Last Admin: 08/24/24 05:59 Dose: 40 mg Senna (Sennosides 8.6 Mg Tablet) 17.2 mg PO DAILY [facility] Last Admin: 08/24/24 08:05 Dose: 17.2 mg Tiotropium [place] (Tiotropium [place] 2.5 Mcg 1 Puff/2.5 Mcg Mist.Inhal) 2 puff INHALE RDAILY [facility] Last Admin: 08/24/24 08:03 Dose: 2 puff Home Medications ?Medication ?Instructions ?Recorded ?Confirmed ?Last Taken ?Type albuterol 90 mcg/actuation aerosol 90 mcg inhalation QID PRN 08/17/24 08/17/24 08/17/24 History inhaler Shortness Of Breath atorvastatin 40 mg tablet 40 mg PO DAILY 08/17/24 08/17/24 08/17/24 History buspirone 15 mg tablet 15 mg PO TID 08/17/24 08/17/24 08/17/24 History duloxetine 60 mg capsule,delayed 60 mg PO DAILY 08/17/24 08/17/24 08/17/24 History release sprinkle gabapentin 400 mg capsule 400 mg PO TID 08/17/24 08/17/24 08/17/24 History levothyroxine 25 mcg tablet 25 mcg PO DAILY 08/17/24 08/17/24 08/17/24 History omeprazole 40 mg capsule,delayed 40 mg PO DAILY 08/17/24 08/17/24 08/17/24 History release sennosides 8.6 mg tablet (senna) 17.2 mg PO DAILY 08/17/24 08/17/24 08/17/24 History umeclidinium 62.5 mcg/actuation 1 inh inhalation DAILY 08/17/24 08/17/24 08/17/24 History blister powder for inhalation (Incruse Ellipta) Physical Exam Vital Signs: Vital Signs: Last Vital Signs Temp 98.2 F 08/23/24 20:14 Pulse 56 08/23/24 23:31 Resp 16 08/23/24 23:31 BP 140/83 H 08/23/24 23:31 Pulse Ox 95 08/23/24 23:31 O2 Del Method Room Air 08/23/24 23:31 BMI result Body Mass Index 35.9 Neuro: Other: He is alert and awake with normal spontaneity of speech fluency comprehension and somewhat flat affect. Facial expressions are reasonably maintained. There is no obvious bradykinesia. Minimal postural hand tremor and minimal speech tremor is noted. No significant cogwheeling is noted. Deep tendon reflexes are trace to 1+ with flexor plantars. He is able to get up and take few steps without any overt signs of parkinsonism. His moderate to severely obese limiting his ability to get around. Speech is normal Results Labs 08/17/24 11:18 08/17/24 11:18 Labs: Head CT revealed mild diffuse atrophy and mild chronic microvascular ischemic changes. Assessment and Plan (1) Cognitive impairment, mild, so stated: Status: Acute 64 years old man with mild microvascular ischemic changes and mild postural hand tremor. Examination was not consistent with diagnosis of Parkinson's disease or parkinsonism. Treatment of psychiatric disease is recommended. As far as microvascular disease of brain is concerned, blood pressure control, treatment of hyperlipidemia, and baby aspirin daily is recommended. Procedures Date of Service Date of Service: 08/24/24
--- NOTE | 2024-08-24 09:50 | PC.NURSE ---
Alert and oriented, calm and cooperative, denies pain or discomfort. Ate well for breakfast. oob ambulating to bathroom with steady gait.
--- NOTE | 2024-08-24 09:58 | MHC.CM.ED ---
Addendum entered by Belle Fuller 08/24/24 14:38: Attempted to reach Felicity again via telephone at [phone]. Phone number is not in order. Original Note: Patient remains in ER. Per Lucila, graphic editor, patient does not have capacity to make his own decisions. Copy of HCP obtained from [facility]. Lists Felicity Friedman as HCP. Attempted to contact Felicity via telephone at [phone]. No answer. Unable to leave a message. Will attempt to call again. Continue to monitor for d/c needs.
[2024-08-24 14:08] VITALS: BP 145/94; PULSE 93; RESP 17; TEMP 36.6; O2SAT 96
--- NOTE | 2024-08-24 15:38 | PC.NURSE ---
Pt. arrives from main ED to Overflow bed 5.
--- NOTE | 2024-08-24 15:43 | MHC.EDTECH ---
this tech assumed care of pt in overflow at 1530, pt moved into hospital bed, orientated to call roca and tv, given kathi zuleika, pt is resting comfortably and quietly. all needs met at this time
[2024-08-24 19:35] VITALS: BP 156/65; PULSE 78; RESP 18; TEMP 37.2; O2SAT 96
--- NOTE | 2024-08-24 21:38 | PC.NURSE ---
pt cleared by psych, pt/cm now. psych assessment not needed as pt is not in pod or with sitter.
[2024-08-25 02:11] VITALS: RESP 18
[2024-08-25 06:19] VITALS: BP 128/74; PULSE 74; RESP 20; TEMP 36.9; O2SAT 98
[2024-08-25] MEDS: Omeprazole 40 MG CAPSULE.DR PO (06:39)
[2024-08-25] MEDS: Levothyroxine Sodium 25 MCG TABLET PO (06:39)
[2024-08-25] MEDS: Tiotropium Bromide 2.5 mcg 1 PUFF/2.5 MCG MIST.INHAL 2 PUFF INHALE (08:07)
[2024-08-25 08:09] VITALS: PULSE 88; RESP 18; O2SAT 96
[2024-08-25] MEDS: Apixaban 5 MG TABLET PO ×2 (09:06→21:18)
[2024-08-25] MEDS: Naltrexone HCl 50 MG TABLET PO (09:06)
[2024-08-25] MEDS: DULoxetine HCl 60 MG CAPSULE.DR PO (09:06)
[2024-08-25] MEDS: busPIRone HCl 5 MG TABLET 15 MG PO ×3 (09:07→21:18)
[2024-08-25] MEDS: Nicotine 21 MG PATCH.TD24 TRANSDERMA (09:07)
[2024-08-25] MEDS: Gabapentin 400 MG CAPSULE PO ×3 (09:07→21:18)
[2024-08-25] MEDS: Atorvastatin Calcium 40 MG TABLET PO (09:07)
[2024-08-25] MEDS: Sennosides 8.6 MG TABLET 17.2 MG PO (09:07)
--- NOTE | 2024-08-25 10:58 | MHC.CM.ED ---
Addendum entered by Belle Fuller 08/25/24 12:47: No bed offers at this time. Referral broadcasted to all facilities within [address] miles of [facility]. 74 referrals made at this time. Original Note: Patient remains in ER overflow. HCP invoked by Dr Kaye. Spoke with patient's mother, Felicity Friedman, via telephone at [phone]. Felicity is named as patient's HCP. Felicity understands HCP is invoked and is willing to serve as HCP. Felicity aware plan is to find LTC at a SNF. Felicity is hoping placement can be found in [facility]. Referral will be broadcasted. Anticipate patient will be an elopement risk. Continue to monitor for d/c needs.
--- NOTE | 2024-08-25 13:08 | PC.NURSE ---
report given to ashwin CAGLE for pt transfer back to POD
--- NOTE | 2024-08-25 14:26 | PC.NURSE ---
Assumed care of patient at 1345, patient appears to be in no apparent distress, showered independently, offering no complaints at this time, calm and cooperative. Pt aware of plan of care for case management follow up
--- NOTE | 2024-08-25 15:32 | MHC.CM.ED ---
Met with pt to update him on d/c plan: Informed pt that his HCP was located from [facility] and that it was now activated meaning his mother (named proxy) would be making decisions regarding his placement. He continues to request placement in the [place] area. Over 70 referrals have been made without any offers at this time. CM to follow
[2024-08-25 16:55] VITALS: BP 132/72; PULSE 85; RESP 16; TEMP 36.4; O2SAT 99
[2024-08-25] MEDS: traMADoL HCL 50 MG TABLET PO (19:31)
[2024-08-26 02:30] VITALS: BP 141/88; PULSE 69; RESP 17; TEMP 36.9; O2SAT 96
[2024-08-26] MEDS: Levothyroxine Sodium 25 MCG TABLET PO (06:49)
[2024-08-26] MEDS: Omeprazole 40 MG CAPSULE.DR PO (06:49)
--- NOTE | 2024-08-26 07:11 | PC.NURSE ---
Assumed care of patient at 0645, patient appears to be in no apparent distress this am, calm and cooperative, offering no complaints, ate 100% of breakfast. pt aware of plan of care for case management follow up
[2024-08-26] MEDS: Apixaban 5 MG TABLET PO ×2 (08:42→21:21)
[2024-08-26] MEDS: Atorvastatin Calcium 40 MG TABLET PO (08:42)
[2024-08-26] MEDS: busPIRone HCl 5 MG TABLET 15 MG PO ×3 (08:42→21:21)
[2024-08-26] MEDS: DULoxetine HCl 60 MG CAPSULE.DR PO (08:42)
[2024-08-26] MEDS: Sennosides 8.6 MG TABLET 17.2 MG PO (08:42)
[2024-08-26] MEDS: Gabapentin 400 MG CAPSULE PO ×3 (08:44→21:36)
[2024-08-26] MEDS: Naltrexone HCl 50 MG TABLET PO (08:44)
[2024-08-26] MEDS: Nicotine 21 MG PATCH.TD24 TRANSDERMA (08:44)
[2024-08-26] MEDS: Tiotropium Bromide 2.5 mcg 1 PUFF/2.5 MCG MIST.INHAL 2 PUFF INHALE (09:18)
[2024-08-26] MEDS: Ibuprofen 800 MG TABLET PO (10:03)
[2024-08-26 18:10] VITALS: BP 140/64; PULSE 82; RESP 16; TEMP 36.9; O2SAT 95
--- NOTE | 2024-08-26 21:56 | PC.NURSE ---
Assumed care of pt at 1845. PT a/o, ambulating with a steady gate throughout the milieu. PT denies pain, SI/HI at this time. Pt medicated as per JAN. Pt requested and provided sandwich. PT resting quietly at this time. Safety precautions in place. 15 minutes safety checks continue. Plan of care ongoing
[2024-08-27] MEDS: Levothyroxine Sodium 25 MCG TABLET PO (06:00)
[2024-08-27] MEDS: Omeprazole 40 MG CAPSULE.DR PO (06:00)
[2024-08-27 06:01] VITALS: BP 139/106; PULSE 80; RESP 16; TEMP 36.9; O2SAT 96
[2024-08-27] MEDS: Tiotropium Bromide 2.5 mcg 1 PUFF/2.5 MCG MIST.INHAL 2 PUFF INHALE (08:05)
[2024-08-27 08:06] VITALS: PULSE 69; RESP 16; O2SAT 98
[2024-08-27] MEDS: busPIRone HCl 5 MG TABLET 15 MG PO ×2 (09:35→15:17)
[2024-08-27] MEDS: Atorvastatin Calcium 40 MG TABLET PO (09:35)
[2024-08-27] MEDS: Sennosides 8.6 MG TABLET 17.2 MG PO (09:35)
[2024-08-27] MEDS: Apixaban 5 MG TABLET PO ×2 (09:35→21:48)
[2024-08-27] MEDS: Gabapentin 400 MG CAPSULE PO ×3 (09:35→21:48)
[2024-08-27] MEDS: Nicotine 21 MG PATCH.TD24 TRANSDERMA (09:37)
[2024-08-27] MEDS: DULoxetine HCl 60 MG CAPSULE.DR PO (10:14)
[2024-08-27] MEDS: Naltrexone HCl 50 MG TABLET PO (10:14)
[2024-08-27 14:00] VITALS: BP 128/67; PULSE 57; RESP 18; TEMP 37.2; O2SAT 95
[2024-08-27] MEDS: Acetaminophen 325 MG TABLET 975 MG PO (17:56)
--- NOTE | 2024-08-27 18:06 | PC.NURSE ---
Pt approaches this RN to request medication for relief of bilat sciatic pain. States pain is 8/10. Consult with MD Cuevas and order for Tylenol placed.
--- NOTE | 2024-08-27 19:32 | PC.NURSE ---
This RN assumed pt care @ 1900. Pt ambulates with a steady gait to restroom and back to room. Pt requested and given food. Plan of care ongoing.
[2024-08-27 20:40] VITALS: BP 126/60; PULSE 69; RESP 16; TEMP 36.7; O2SAT 94
--- NOTE | 2024-08-27 21:04 | PC.NURSE ---
Med not in pyxis, med requested from pharmacy.
[2024-08-27] MEDS: busPIRone HCl 10 MG TABLET 15 MG PO (21:48)
--- NOTE | 2024-08-27 21:55 | PC.NURSE ---
Pt resting in bed, watching tv Pt medicated per mar. Pt requested and lights turned off Plan of care ongoing.
--- NOTE | 2024-08-27 22:29 | PC.NURSE ---
Pt ambulates to the restroom and back into room with a steady gait. Plan of care ongoing.
--- NOTE | 2024-08-28 01:26 | PC.NURSE ---
Pt ambulates with a steady gait to restroom and back into room.
[2024-08-28] MEDS: Levothyroxine Sodium 25 MCG TABLET PO (06:01)
[2024-08-28] MEDS: Omeprazole 40 MG CAPSULE.DR PO (06:01)
--- NOTE | 2024-08-28 06:07 | PC.NURSE ---
Pt medicated per [facility] Plan of care ongoing.
[2024-08-28 06:21] VITALS: BP 145/70; PULSE 62; RESP 16; TEMP 36.7; O2SAT 95
--- NOTE | 2024-08-28 06:22 | MHC.EDTECH ---
Patient awake 0600 rounding done ,vitals taken ,Patient was up 4 times during the night use bathroom and back to bed ,
--- NOTE | 2024-08-28 08:22 | MHC.EDTECH ---
pt ate 100%breakfast
--- NOTE | 2024-08-28 08:58 | MHC.CM.ED ---
Addendum entered by Belle Fuller 08/28/24 13:59: No bed offers at this time. Referral broadcasted throughout [facility]. 218 referrals made. Original Note: Patient remains in ER overflow. Clinical updates sent to facilities still following: [place], [facility], [place], [place],and [place]. Continue to monitor for d/c neeeds.
[2024-08-28] MEDS: Apixaban 5 MG TABLET PO ×2 (09:13→20:41)
[2024-08-28] MEDS: busPIRone HCl 10 MG TABLET 15 MG PO ×3 (09:13→20:42)
[2024-08-28] MEDS: Tiotropium Bromide 2.5 mcg 1 PUFF/2.5 MCG MIST.INHAL 2 PUFF INHALE (09:13)
[2024-08-28] MEDS: Atorvastatin Calcium 40 MG TABLET PO (09:13)
[2024-08-28] MEDS: Sennosides 8.6 MG TABLET 17.2 MG PO (09:13)
[2024-08-28] MEDS: Naltrexone HCl 50 MG TABLET PO (09:13)
[2024-08-28] MEDS: Gabapentin 400 MG CAPSULE PO ×3 (09:13→20:42)
[2024-08-28] MEDS: DULoxetine HCl 60 MG CAPSULE.DR PO (09:13)
[2024-08-28] MEDS: Nicotine 21 MG PATCH.TD24 TRANSDERMA (09:13)
--- NOTE | 2024-08-28 11:07 | MHC.EDTECH ---
pt refuse to shower he stated He showered yesterday i told him that if he changes his mind the shower is available whenever.
--- NOTE | 2024-08-28 12:38 | MHC.EDTECH ---
pt ate lunch 100%
[2024-08-28 14:00] VITALS: BP 133/66; PULSE 64; RESP 16; TEMP 36.6; O2SAT 95
--- NOTE | 2024-08-28 17:14 | MHC.EDTECH ---
pt ate 100%dinner
[2024-08-28] MEDS: Acetaminophen 325 MG TABLET 975 MG PO (17:26)
[2024-08-28 21:39] VITALS: BP 130/95; PULSE 69; RESP 17; TEMP 36.9; O2SAT 96
--- NOTE | 2024-08-28 23:07 | PC.NURSE ---
Patient alert and oriented with periods of confusion. Lungs clear, abd soft, denies pain or discomfort at this time. Bedtime medications administered per mar. Patient ambulates independently with steady gait. Snack provided, callbell within reach.
[2024-08-29 05:46] VITALS: BP 140/89; PULSE 67; RESP 18; TEMP 36.8; O2SAT 94
[2024-08-29] MEDS: Levothyroxine Sodium 25 MCG TABLET PO (06:18)
[2024-08-29] MEDS: Omeprazole 40 MG CAPSULE.DR PO (06:18)
[2024-08-29] MEDS: Tiotropium Bromide 2.5 mcg 1 PUFF/2.5 MCG MIST.INHAL 2 PUFF INHALE (07:36)
[2024-08-29 07:37] VITALS: PULSE 66; RESP 18; O2SAT 97
[2024-08-29] MEDS: Naltrexone HCl 50 MG TABLET PO (09:21)
[2024-08-29] MEDS: Sennosides 8.6 MG TABLET 17.2 MG PO (09:21)
[2024-08-29] MEDS: busPIRone HCl 10 MG TABLET 15 MG PO ×3 (09:21→22:25)
[2024-08-29] MEDS: DULoxetine HCl 60 MG CAPSULE.DR PO (09:21)
[2024-08-29] MEDS: Gabapentin 400 MG CAPSULE PO ×3 (09:22→22:25)
[2024-08-29] MEDS: Apixaban 5 MG TABLET PO ×2 (09:22→22:25)
[2024-08-29] MEDS: Nicotine 21 MG PATCH.TD24 TRANSDERMA (09:22)
[2024-08-29] MEDS: Atorvastatin Calcium 40 MG TABLET PO (09:22)
[2024-08-29 14:35] VITALS: BP 134/72; PULSE 84; RESP 17; TEMP 36.9; O2SAT 96
[2024-08-29 22:07] VITALS: BP 127/69; PULSE 70; RESP 20; TEMP 36.9; O2SAT 95
[2024-08-30] MEDS: Omeprazole 40 MG CAPSULE.DR PO (05:31)
[2024-08-30] MEDS: Levothyroxine Sodium 25 MCG TABLET PO (05:31)
[2024-08-30 05:36] VITALS: BP 114/63; PULSE 75; RESP 20; TEMP 36.7; O2SAT 94
[2024-08-30] MEDS: Tiotropium Bromide 2.5 mcg 1 PUFF/2.5 MCG MIST.INHAL 2 PUFF INHALE (07:52)
[2024-08-30 07:53] VITALS: PULSE 75; RESP 20; O2SAT 98
[2024-08-30 07:58] VITALS: BP 137/82; PULSE 88; RESP 20; TEMP 36.6; O2SAT 95
[2024-08-30] MEDS: DULoxetine HCl 60 MG CAPSULE.DR PO (09:21)
[2024-08-30] MEDS: Sennosides 8.6 MG TABLET 17.2 MG PO (09:21)
[2024-08-30] MEDS: Atorvastatin Calcium 40 MG TABLET PO (09:21)
[2024-08-30] MEDS: Apixaban 5 MG TABLET PO ×2 (09:21→21:56)
[2024-08-30] MEDS: Nicotine 21 MG PATCH.TD24 TRANSDERMA (09:21)
[2024-08-30] MEDS: Naltrexone HCl 50 MG TABLET PO (09:21)
[2024-08-30] MEDS: Gabapentin 400 MG CAPSULE PO ×3 (09:21→21:56)
[2024-08-30] MEDS: busPIRone HCl 10 MG TABLET 15 MG PO ×3 (09:22→21:56)
--- NOTE | 2024-08-30 10:18 | PC.NURSE ---
Pt A/Ox3, can be forgetful. Calm and cooperative with care. Takes meds whole. Good PO intake. Ambulating independently to bathroom. Will cont to monitor
--- NOTE | 2024-08-30 11:25 | MHC.CM.PN ---
Addendum entered by Deedee Lynne RN 08/30/24 15:11: Family updated on referral status. Family is unable to care for patient as mother lives in [place] and brother lives in one bedroom apartment w/ spouse. Original Note: Patient remains in overflow awaiting LTC placement. CM sent updates w/ nursing notes (no behavioral concerns) and expanded referrals. Spoke w/ liaison from [facility] - it is their policy not to admit patients until 1 year of no SI w/ plan. CM will continue to follow.
[2024-08-30 14:46] VITALS: BP 128/58; PULSE 79; RESP 16; TEMP 37.1; O2SAT 95
--- NOTE | 2024-08-30 17:08 | PC.NURSE ---
Patient sleeping at this time. Respirations even/unlabored. Care ongoing.
[2024-08-30 22:00] VITALS: BP 111/58; PULSE 73; RESP 17; TEMP 36.9; O2SAT 94
--- NOTE | 2024-08-30 23:19 | PC.NURSE ---
This RN received report and took of care of patient at this time.
--- NOTE | 2024-08-31 02:48 | PC.NURSE ---
Pt asleep, resting comfortably
[2024-08-31 04:45] VITALS: BP 135/59; PULSE 51; RESP 18; TEMP 36.6; O2SAT 95
[2024-08-31] MEDS: Omeprazole 40 MG CAPSULE.DR PO (05:57)
[2024-08-31] MEDS: Levothyroxine Sodium 25 MCG TABLET PO (05:57)
--- NOTE | 2024-08-31 06:00 | PC.NURSE ---
Pt medicated to MAR, adjusted in bed for comfort.
[2024-08-31] MEDS: Tiotropium Bromide 2.5 mcg 1 PUFF/2.5 MCG MIST.INHAL 2 PUFF INHALE (07:48)
[2024-08-31 07:49] VITALS: PULSE 64; RESP 14; O2SAT 95
--- NOTE | 2024-08-31 08:58 | MHC.EDTECH ---
pt ate 100% of his breakfast and 240cc of apple juice
[2024-08-31] MEDS: Sennosides 8.6 MG TABLET 17.2 MG PO (09:11)
[2024-08-31] MEDS: Gabapentin 400 MG CAPSULE PO ×3 (09:11→21:09)
[2024-08-31] MEDS: Apixaban 5 MG TABLET PO ×2 (09:11→21:09)
[2024-08-31] MEDS: busPIRone HCl 10 MG TABLET 15 MG PO ×3 (09:11→21:09)
[2024-08-31] MEDS: Atorvastatin Calcium 40 MG TABLET PO (09:11)
[2024-08-31] MEDS: Nicotine 21 MG PATCH.TD24 TRANSDERMA (09:12)
--- NOTE | 2024-08-31 09:31 | MHC.CM.ED ---
Patient remains in ER overflow. Clinical updates sent to facilities that [facility]'t [facility]. Continue to monitor for d/c needs.
[2024-08-31] MEDS: Naltrexone HCl 50 MG TABLET PO (10:04)
[2024-08-31] MEDS: DULoxetine HCl 60 MG CAPSULE.DR PO (10:04)
[2024-08-31 14:00] VITALS: BP 146/70; PULSE 77; RESP 18; TEMP 36.3; O2SAT 96
[2024-08-31] MEDS: Lidocaine 4 % Patch ADH..PATCH 1 PATCH TRANSDERMA (15:33)
[2024-08-31] MEDS: Acetaminophen 325 MG TABLET PO (15:33)
--- NOTE | 2024-08-31 21:37 | PC.NURSE ---
Assumed care for pt. Pt alert and awake, resting at the bedside. No apparent distress noted. Medicated as per MAR and tolerated well. Pt given putting and kathi zuleika as requested. All needs met. Monitoring is ongoing.
[2024-08-31 21:42] VITALS: BP 119/57; PULSE 75; RESP 17; TEMP 36.6; O2SAT 96
[2024-09-01] MEDS: Levothyroxine Sodium 25 MCG TABLET PO (05:52)
[2024-09-01] MEDS: Omeprazole 40 MG CAPSULE.DR PO (05:52)
[2024-09-01 06:00] VITALS: BP 141/81; PULSE 60; RESP 17; TEMP 36.3; O2SAT 96
[2024-09-01] MEDS: Nicotine 21 MG PATCH.TD24 TRANSDERMA (08:17)
[2024-09-01] MEDS: Atorvastatin Calcium 40 MG TABLET PO (08:19)
[2024-09-01] MEDS: Naltrexone HCl 50 MG TABLET PO (08:19)
[2024-09-01] MEDS: Sennosides 8.6 MG TABLET 17.2 MG PO (08:19)
[2024-09-01] MEDS: DULoxetine HCl 60 MG CAPSULE.DR PO (08:19)
[2024-09-01] MEDS: Apixaban 5 MG TABLET PO ×2 (08:19→20:22)
[2024-09-01] MEDS: Gabapentin 400 MG CAPSULE PO ×3 (08:19→20:22)
[2024-09-01] MEDS: busPIRone HCl 10 MG TABLET 15 MG PO ×3 (08:19→20:22)
[2024-09-01] MEDS: Tiotropium Bromide 2.5 mcg 1 PUFF/2.5 MCG MIST.INHAL 2 PUFF INHALE (08:49)
[2024-09-01 14:12] VITALS: BP 122/79; PULSE 76; RESP 16; O2SAT 98
[2024-09-01 21:10] VITALS: BP 136/64; PULSE 79; RESP 18; TEMP 36.7; O2SAT 97
[2024-09-02] MEDS: Levothyroxine Sodium 25 MCG TABLET PO (05:42)
[2024-09-02] MEDS: Omeprazole 40 MG CAPSULE.DR PO (05:42)
[2024-09-02 05:52] VITALS: BP 117/76; PULSE 79; RESP 16; TEMP 36.7; O2SAT 98
[2024-09-02 08:17] VITALS: BP 137/60; PULSE 64; RESP 16; TEMP 36.6; O2SAT 95
[2024-09-02] MEDS: Tiotropium Bromide 2.5 mcg 1 PUFF/2.5 MCG MIST.INHAL 2 PUFF INHALE (08:27)
[2024-09-02] MEDS: busPIRone HCl 10 MG TABLET 15 MG PO ×3 (08:28→20:10)
[2024-09-02] MEDS: Atorvastatin Calcium 40 MG TABLET PO (08:28)
[2024-09-02] MEDS: Gabapentin 400 MG CAPSULE PO ×3 (08:28→20:10)
[2024-09-02] MEDS: Naltrexone HCl 50 MG TABLET PO (08:28)
[2024-09-02] MEDS: DULoxetine HCl 60 MG CAPSULE.DR PO (08:29)
[2024-09-02] MEDS: Sennosides 8.6 MG TABLET 17.2 MG PO (08:29)
[2024-09-02] MEDS: Apixaban 5 MG TABLET PO ×2 (08:30→20:10)
[2024-09-02] MEDS: Nicotine 21 MG PATCH.TD24 TRANSDERMA (08:30)
--- NOTE | 2024-09-02 08:49 | PC.NURSE ---
report received from previous RN, patient resting comfortably on stretcher at this time, patient provided with breakfast tray and medicated with morning medications per JAN. not offering any complaints to this RN at this time, plan of care remains ongoing at this time, patient remains calm and cooperative with care.
--- NOTE | 2024-09-02 10:00 | PC.NURSE ---
patient resting comfortably on stretcher, able to ambulate independently around unit, calm and cooperative with plan of care
--- NOTE | 2024-09-02 11:47 | PC.NURSE ---
patient provided with lunch tray
--- NOTE | 2024-09-02 13:16 | PC.NURSE ---
patient ambulated out of room, requesting sheila crackers and peanut butter, provided patient with snack, remains cooperative and calm with this RN.
[2024-09-02 15:09] VITALS: BP 149/69; PULSE 86; RESP 18; TEMP 36.7; O2SAT 95
--- NOTE | 2024-09-02 16:44 | PC.NURSE ---
patient provided with dinner tray
[2024-09-02 20:02] VITALS: BP 129/80; PULSE 68; RESP 18; TEMP 36.4; O2SAT 95
[2024-09-02] MEDS: Acetaminophen 325 MG TABLET PO (20:11)
[2024-09-03] MEDS: Omeprazole 40 MG CAPSULE.DR PO (06:02)
[2024-09-03] MEDS: Levothyroxine Sodium 25 MCG TABLET PO (06:02)
[2024-09-03 06:16] VITALS: BP 145/94; PULSE 73; RESP 18; TEMP 36.5; O2SAT 95
[2024-09-03 09:52] VITALS: BP 112/64; PULSE 64; RESP 16; TEMP 36.6; O2SAT 93
[2024-09-03] MEDS: Sennosides 8.6 MG TABLET 17.2 MG PO (09:54)
[2024-09-03] MEDS: Gabapentin 400 MG CAPSULE PO ×3 (09:54→20:48)
[2024-09-03] MEDS: Nicotine 21 MG PATCH.TD24 TRANSDERMA (09:54)
[2024-09-03] MEDS: Atorvastatin Calcium 40 MG TABLET PO (09:54)
[2024-09-03] MEDS: Naltrexone HCl 50 MG TABLET PO (09:54)
[2024-09-03] MEDS: busPIRone HCl 10 MG TABLET 15 MG PO ×3 (09:54→20:48)
[2024-09-03] MEDS: Apixaban 5 MG TABLET PO ×2 (09:54→20:48)
[2024-09-03] MEDS: DULoxetine HCl 60 MG CAPSULE.DR PO (09:54)
[2024-09-03] MEDS: Lidocaine 4 % Patch ADH..PATCH 1 PATCH TRANSDERMA (09:55)
--- NOTE | 2024-09-03 10:00 | PC.NURSE ---
patient resting quietly in room, medicated per JAN, VSS. patient ambulates with steady gait
[2024-09-03 14:24] VITALS: BP 124/64; PULSE 66; RESP 16; TEMP 36.6; O2SAT 94
--- NOTE | 2024-09-03 19:18 | PC.NURSE ---
received report from Bettie CAGLE, assume care of pt at this time
--- NOTE | 2024-09-03 19:56 | MHC.EDTECH ---
This tech assumed care of patient at 1900, patient moved from the main ED to overflow,rounded and introduced self to patient,patient ambulated with a steady gait to the bathroom, gingerale, sheila crackers and peanut butter were giving at this time per request,call roca within reach
[2024-09-03 21:32] VITALS: BP 119/66; PULSE 72; RESP 18; TEMP 37; O2SAT 96
--- NOTE | 2024-09-03 21:34 | MHC.EDTECH ---
Rounds/vitals completed,patient is resting quietly,call roca within reach
--- NOTE | 2024-09-04 00:04 | PC.NURSE ---
resting quietly, with eyes closed, resp with ease, cont plan of care
--- NOTE | 2024-09-04 03:48 | PC.NURSE ---
resting quietly in bed, with eyes closed, resp with ease, no s/s of acute distress, will cont plan of care
[2024-09-04 05:53] VITALS: BP 121/68; PULSE 71; RESP 18; TEMP 36.1; O2SAT 95
[2024-09-04] MEDS: Levothyroxine Sodium 25 MCG TABLET PO (06:16)
[2024-09-04] MEDS: Omeprazole 40 MG CAPSULE.DR PO (06:16)
--- NOTE | 2024-09-04 08:36 | MHC.CM.ED ---
Late entry from 09/02/24 at 1630: Met with patient at his request. Patient reminded that CM was in the process of trying to find a safe place for him to live. Patient verbalized understanding. Continue to monitor for d/c needs.
[2024-09-04] MEDS: Nicotine 21 MG PATCH.TD24 TRANSDERMA (09:14)
[2024-09-04] MEDS: Naltrexone HCl 50 MG TABLET PO (09:14)
[2024-09-04] MEDS: DULoxetine HCl 60 MG CAPSULE.DR PO (09:14)
[2024-09-04] MEDS: Apixaban 5 MG TABLET PO ×2 (09:15→22:04)
[2024-09-04] MEDS: Atorvastatin Calcium 40 MG TABLET PO (09:15)
[2024-09-04] MEDS: busPIRone HCl 10 MG TABLET 15 MG PO ×3 (09:15→21:56)
[2024-09-04] MEDS: Gabapentin 400 MG CAPSULE PO ×3 (09:15→21:56)
[2024-09-04] MEDS: Sennosides 8.6 MG TABLET 17.2 MG PO (09:16)
--- NOTE | 2024-09-04 10:12 | PC.NURSE ---
Pt woke up this morning, alert and oriented. Ambulated to bathroom with no issues. Ate his breakfast and took morning meds with no issues. Refused lido patch at this time. Resting in bed.
--- NOTE | 2024-09-04 14:10 | PC.NURSE ---
Pt showered and changed into fresh hospital clothing.
[2024-09-04 14:15] VITALS: BP 137/62; PULSE 86; RESP 16; TEMP 37; O2SAT 94
--- NOTE | 2024-09-04 20:01 | MHC.EDTECH ---
This pct assumed care of Patient at 1910 ,Patient went to bathroom ,void and asked for snack ,then back in room .
[2024-09-04 20:41] VITALS: BP 111/76; PULSE 99; RESP 16; TEMP 37; O2SAT 98
--- NOTE | 2024-09-05 | PC.NURSE ---
This poem writer assumed care of this Pt at 2300. Pt appears to be sleeping, equal, non-labored respirations. Plan of care on going.
--- NOTE | 2024-09-05 02:00 | PC.NURSE ---
Pt ambulated to BR independently with slow steady gait.
[2024-09-05 06:00] VITALS: BP 125/69; PULSE 61; RESP 16; TEMP 36.3; O2SAT 94
[2024-09-05] MEDS: Levothyroxine Sodium 25 MCG TABLET PO (06:14)
[2024-09-05] MEDS: Omeprazole 40 MG CAPSULE.DR PO (06:14)
[2024-09-05] MEDS: Tiotropium Bromide 2.5 mcg 1 PUFF/2.5 MCG MIST.INHAL 2 PUFF INHALE (07:50)
[2024-09-05 07:52] VITALS: PULSE 72; RESP 16; O2SAT 96
[2024-09-05 08:38] VITALS: BP 126/59; PULSE 88; RESP 16; TEMP 36.4; O2SAT 93
[2024-09-05] MEDS: Apixaban 5 MG TABLET PO ×2 (08:45→20:51)
[2024-09-05] MEDS: Sennosides 8.6 MG TABLET 17.2 MG PO (08:45)
[2024-09-05] MEDS: busPIRone HCl 10 MG TABLET 15 MG PO ×3 (08:45→20:51)
[2024-09-05] MEDS: Atorvastatin Calcium 40 MG TABLET PO (08:45)
[2024-09-05] MEDS: Gabapentin 400 MG CAPSULE PO ×3 (08:45→20:51)
[2024-09-05] MEDS: Nicotine 21 MG PATCH.TD24 TRANSDERMA (08:47)
[2024-09-05] MEDS: Lidocaine 4 % Patch ADH..PATCH 1 PATCH TRANSDERMA (08:47)
--- NOTE | 2024-09-05 09:35 | MHC.CM.ED ---
Addendum entered by Belle Fuller 09/05/24 11:43: [facility] does not have a bed available. Original Note: Patient remains in ER overflow. No behavior issues. HCP invoked. Called every facility that did not respond in [facility]: [facility], [facility], [facility], [facility], [facility], [facility], [facility], [facility], [facility], Lyn and [facility]. [facility] does not have a bed available. [facility] does not have a bed at that facility. However they have one at a sister facility. Clinical info faxed to Teressa at [phone]. Continue to monitor for d/c needs.
[2024-09-05] MEDS: DULoxetine HCl 60 MG CAPSULE.DR PO (10:18)
[2024-09-05] MEDS: Naltrexone HCl 50 MG TABLET PO (10:18)
--- NOTE | 2024-09-05 13:40 | MHC.CM.ED ---
Addendum entered by Belle Fuller 09/05/24 16:18: Received notification from [facility] that patient will not be eligible for abbreviated Level 2. Will need complete Level 2. Original Note: Received telephone call from Micha[facility] of [facility] in [facility]. They feel they will be able to offer a bed. T/W will obtain [facility] Level 2, complete MDS and sent to [facility]. Patient's brother, Melvin, made aware via telephone. Melvin will provide this information to his mother, Felicity. Anticipate patient will d/c to facility or Wednesday. Continue to monitor for d/c needs.
[2024-09-05 13:44] VITALS: BP 148/73; PULSE 67; RESP 18; TEMP 37; O2SAT 95
[2024-09-05 21:01] VITALS: BP 128/67; PULSE 71; RESP 20; TEMP 36.4; O2SAT 95
[2024-09-06 05:21] VITALS: BP 130/60; PULSE 62; RESP 16; TEMP 36; O2SAT 94
[2024-09-06] MEDS: Omeprazole 40 MG CAPSULE.DR PO (06:27)
[2024-09-06] MEDS: Levothyroxine Sodium 25 MCG TABLET PO (06:27)
[2024-09-06 07:58] VITALS: PULSE 65; RESP 16; O2SAT 95
[2024-09-06] MEDS: Tiotropium Bromide 2.5 mcg 1 PUFF/2.5 MCG MIST.INHAL 2 PUFF INHALE (07:58)
[2024-09-06] MEDS: Lidocaine 4 % Patch ADH..PATCH 1 PATCH TRANSDERMA (08:23)
[2024-09-06] MEDS: Nicotine 21 MG PATCH.TD24 TRANSDERMA (08:24)
[2024-09-06] MEDS: busPIRone HCl 10 MG TABLET 15 MG PO ×3 (08:25→20:34)
[2024-09-06] MEDS: Naltrexone HCl 50 MG TABLET PO (08:25)
[2024-09-06] MEDS: Gabapentin 400 MG CAPSULE PO ×3 (08:26→20:34)
[2024-09-06] MEDS: Apixaban 5 MG TABLET PO ×2 (08:26→20:34)
[2024-09-06] MEDS: Atorvastatin Calcium 40 MG TABLET PO (08:26)
[2024-09-06] MEDS: DULoxetine HCl 60 MG CAPSULE.DR PO (08:26)
[2024-09-06] MEDS: Sennosides 8.6 MG TABLET 17.2 MG PO (08:26)
--- NOTE | 2024-09-06 09:51 | PC.NURSE ---
Pt ate most of breakfast. he is watching tv, makes no requests. ambulatory to the bathroom without assistance.
[2024-09-06 14:06] VITALS: BP 130/64; PULSE 84; RESP 18; TEMP 37; O2SAT 96
[2024-09-06 21:17] VITALS: BP 123/62; PULSE 71; RESP 19; TEMP 36.6; O2SAT 95
[2024-09-07 05:49] VITALS: BP 142/82; PULSE 61; RESP 16; TEMP 36.8; O2SAT 96
[2024-09-07] MEDS: Omeprazole 40 MG CAPSULE.DR PO (05:49)
[2024-09-07] MEDS: Levothyroxine Sodium 25 MCG TABLET PO (05:49)
[2024-09-07] MEDS: Tiotropium Bromide 2.5 mcg 1 PUFF/2.5 MCG MIST.INHAL 2 PUFF INHALE (07:38)
[2024-09-07 07:40] VITALS: PULSE 66; RESP 16; O2SAT 98
[2024-09-07 08:51] VITALS: BP 119/69; PULSE 52; RESP 18; TEMP 36.4; O2SAT 95
[2024-09-07] MEDS: busPIRone HCl 10 MG TABLET 15 MG PO ×3 (09:15→20:08)
[2024-09-07] MEDS: Apixaban 5 MG TABLET PO ×2 (09:15→20:08)
[2024-09-07] MEDS: DULoxetine HCl 60 MG CAPSULE.DR PO (09:15)
[2024-09-07] MEDS: Atorvastatin Calcium 40 MG TABLET PO (09:15)
[2024-09-07] MEDS: Naltrexone HCl 50 MG TABLET PO (09:15)
[2024-09-07] MEDS: Sennosides 8.6 MG TABLET 17.2 MG PO (09:16)
[2024-09-07] MEDS: Gabapentin 400 MG CAPSULE PO ×3 (09:16→20:08)
[2024-09-07] MEDS: Nicotine 21 MG PATCH.TD24 TRANSDERMA (09:16)
[2024-09-07] MEDS: Lidocaine 4 % Patch ADH..PATCH 1 PATCH TRANSDERMA (09:55)
[2024-09-07 14:00] VITALS: BP 140/90; PULSE 116; RESP 20; TEMP 36.6; O2SAT 93
[2024-09-07 19:35] VITALS: BP 136/63; PULSE 81; RESP 18; TEMP 36.4; O2SAT 95
[2024-09-08] VITALS: RESP 18
[2024-09-08] MEDS: Levothyroxine Sodium 25 MCG TABLET PO (05:33)
[2024-09-08] MEDS: Omeprazole 40 MG CAPSULE.DR PO (05:33)
[2024-09-08 05:46] VITALS: BP 102/62; PULSE 72; RESP 18; TEMP 36.4; O2SAT 93
[2024-09-08] MEDS: Tiotropium Bromide 2.5 mcg 1 PUFF/2.5 MCG MIST.INHAL 2 PUFF INHALE (08:13)
[2024-09-08 08:14] VITALS: PULSE 72; RESP 18; O2SAT 97
--- NOTE | 2024-09-08 08:33 | MHC.CM.ED ---
Addendum entered by Belle Fuller 09/08/24 10:16: Patient's mother/HCP, Felicity and brother, Melvin morelos. Original Note: Patient remains in ER overflow. Will d/c to [facility] on Tuesday 09/11. Continue to monitor for d/c needs.
[2024-09-08 08:43] VITALS: BP 134/75; PULSE 63; RESP 17; O2SAT 95
[2024-09-08] MEDS: Nicotine 21 MG PATCH.TD24 TRANSDERMA (09:06)
[2024-09-08] MEDS: DULoxetine HCl 60 MG CAPSULE.DR PO (09:07)
[2024-09-08] MEDS: Apixaban 5 MG TABLET PO ×2 (09:08→20:13)
[2024-09-08] MEDS: busPIRone HCl 10 MG TABLET 15 MG PO ×3 (09:08→20:13)
[2024-09-08] MEDS: Atorvastatin Calcium 40 MG TABLET PO (09:08)
[2024-09-08] MEDS: Sennosides 8.6 MG TABLET 17.2 MG PO (09:08)
[2024-09-08] MEDS: Naltrexone HCl 50 MG TABLET PO (09:09)
[2024-09-08] MEDS: Gabapentin 400 MG CAPSULE PO ×3 (09:09→20:15)
--- NOTE | 2024-09-08 11:30 | PC.NURSE ---
Patient ambulated out of bed to bathroom. Ambulates with steady gait. No needs at this time. Denies complaints. Care ongoing by this RN.
[2024-09-08 14:30] VITALS: BP 143/65; PULSE 75; RESP 17; TEMP 36.7; O2SAT 96
[2024-09-08 21:26] VITALS: BP 130/62; PULSE 72; RESP 16; TEMP 36.2; O2SAT 95
--- NOTE | 2024-09-08 23:27 | PC.NURSE ---
Assumed care for patient at 1900. Patient denies pain. Able to make needs known. Resting comfortably at present, walks independently to bathroom with steady gait.
[2024-09-09 04:22] VITALS: BP 120/76; PULSE 59; RESP 16; TEMP 36.9
[2024-09-09] MEDS: Levothyroxine Sodium 25 MCG TABLET PO (05:33)
[2024-09-09] MEDS: Omeprazole 40 MG CAPSULE.DR PO (05:33)
[2024-09-09] MEDS: busPIRone HCl 10 MG TABLET 15 MG PO ×3 (08:11→22:03)
[2024-09-09] MEDS: Gabapentin 400 MG CAPSULE PO ×3 (08:11→22:04)
[2024-09-09] MEDS: Atorvastatin Calcium 40 MG TABLET PO (08:11)
[2024-09-09] MEDS: Nicotine 21 MG PATCH.TD24 TRANSDERMA (08:11)
[2024-09-09] MEDS: Apixaban 5 MG TABLET PO ×2 (08:11→22:04)
[2024-09-09] MEDS: Sennosides 8.6 MG TABLET 17.2 MG PO (08:11)
[2024-09-09] MEDS: DULoxetine HCl 60 MG CAPSULE.DR PO (08:11)
[2024-09-09] MEDS: Naltrexone HCl 50 MG TABLET PO (08:11)
[2024-09-09 08:12] VITALS: BP 120/59; PULSE 56; RESP 16; TEMP 36.2; O2SAT 95
[2024-09-09] MEDS: Tiotropium Bromide 2.5 mcg 1 PUFF/2.5 MCG MIST.INHAL 2 PUFF INHALE (08:20)
[2024-09-09 08:22] VITALS: PULSE 65; RESP 16; O2SAT 95
[2024-09-09 14:20] VITALS: BP 138/92; PULSE 73; RESP 16; O2SAT 96
[2024-09-09 19:44] VITALS: BP 135/89; PULSE 71; RESP 16; TEMP 36.4; O2SAT 97
[2024-09-10 06:00] VITALS: BP 132/78; PULSE 62; RESP 16; TEMP 36.8; O2SAT 98
[2024-09-10] MEDS: Levothyroxine Sodium 25 MCG TABLET PO (07:44)
[2024-09-10] MEDS: Omeprazole 40 MG CAPSULE.DR PO (07:44)
--- NOTE | 2024-09-10 07:45 | PC.NURSE ---
Alert and responsive, medicated per jan, ate well for breakfast. Report given to RN in overflow
[2024-09-10] MEDS: Naltrexone HCl 50 MG TABLET PO (08:00)
[2024-09-10] MEDS: busPIRone HCl 10 MG TABLET 15 MG PO ×3 (08:00→20:50)
[2024-09-10] MEDS: Gabapentin 400 MG CAPSULE PO ×3 (08:00→20:50)
[2024-09-10] MEDS: Atorvastatin Calcium 40 MG TABLET PO (08:00)
[2024-09-10] MEDS: Sennosides 8.6 MG TABLET 17.2 MG PO (08:00)
[2024-09-10] MEDS: Apixaban 5 MG TABLET PO ×2 (08:00→20:50)
[2024-09-10] MEDS: DULoxetine HCl 60 MG CAPSULE.DR PO (08:00)
[2024-09-10] MEDS: Nicotine 21 MG PATCH.TD24 TRANSDERMA (08:01)
[2024-09-10 08:03] VITALS: PULSE 76; RESP 18; O2SAT 96
[2024-09-10] MEDS: Tiotropium Bromide 2.5 mcg 1 PUFF/2.5 MCG MIST.INHAL 2 PUFF INHALE (08:03)
--- NOTE | 2024-09-10 12:28 | MHC.CM.ED ---
Pt continues to board in ED OF pending transfer [facility]. Facility requests that any controlled med scripts accompany pt. Report can be called using [phone]. Rosaura to be arranged for S transportation.
[2024-09-10 14:13] VITALS: BP 127/58; PULSE 68; RESP 14; TEMP 36.5; O2SAT 96
[2024-09-10 20:41] VITALS: BP 123/66; PULSE 77; RESP 16; TEMP 36.2; O2SAT 95
[2024-09-10] MEDS: Acetaminophen 325 MG TABLET PO (20:50)
--- NOTE | 2024-09-10 23:23 | PC.NURSE ---
rt received from Stacey Snyder RN, assume care of pt at this time
--- NOTE | 2024-09-11 00:14 | PC.NURSE ---
resting quietly, with eyes closed, resp with ease, no s/s of acute distress, will cont plan of care
--- NOTE | 2024-09-11 01:39 | PC.NURSE ---
pt amb steadily to the bathroom, denies any futher needs
[2024-09-11 06:00] VITALS: BP 124/78; PULSE 63; RESP 16; TEMP 36.1; O2SAT 96
[2024-09-11] MEDS: Levothyroxine Sodium 25 MCG TABLET PO (06:01)
[2024-09-11] MEDS: Omeprazole 40 MG CAPSULE.DR PO (06:01)
--- NOTE | 2024-09-11 07:08 | PC.NURSE ---
report to Jeanna CAGLE
[2024-09-11 08:13] VITALS: PULSE 63; RESP 16; O2SAT 98
[2024-09-11] MEDS: Tiotropium Bromide 2.5 mcg 1 PUFF/2.5 MCG MIST.INHAL 2 PUFF INHALE (08:13)
[2024-09-11 08:56] VITALS: BP 108/65; PULSE 70; RESP 15; TEMP 36.8; O2SAT 95
[2024-09-11] MEDS: DULoxetine HCl 60 MG CAPSULE.DR PO (08:57)
[2024-09-11] MEDS: Gabapentin 400 MG CAPSULE PO (08:57)
[2024-09-11] MEDS: Sennosides 8.6 MG TABLET 17.2 MG PO (08:57)
[2024-09-11] MEDS: Apixaban 5 MG TABLET PO (08:58)
[2024-09-11] MEDS: busPIRone HCl 10 MG TABLET 15 MG PO (08:58)
[2024-09-11] MEDS: Atorvastatin Calcium 40 MG TABLET PO (08:58)
[2024-09-11] MEDS: Naltrexone HCl 50 MG TABLET PO (08:59)
[2024-09-11] MEDS: Nicotine 21 MG PATCH.TD24 TRANSDERMA (09:03)
[2024-09-11] MEDS: Acetaminophen 325 MG TABLET PO (09:09)
--- NOTE | 2024-09-11 09:43 | PC.NURSE ---
pt alert and cooperative, reports mild anxiety about transfer but states he is ok . He reported 8/10 lower back muscular ache and had scheduled meds and PRN APAP prior to d/c. Per [employer] Marc Bush OK to give APAP for this 8/10 pain. Pt denies other complaint. He was transferred by ambulance without incident with belongings. Report called to nurse Gud[facility]ari at [facility].
== END 2024-09-11 09:12 ==
PROVIDERS: Emergency Medicine; Social Worker; Emergency Provider Emergency Medicine Emergency Medical Services
DX: F33.1 Major depressive disorder, recurrent, moderate (principal); G31.84 Mild cognitive impairment of uncertain or unknown etiology; R45.851 Suicidal ideations; F43.9 Reaction to severe stress, unspecified; F41.1 Generalized anxiety disorder; F43.0 Acute stress reaction; E78.5 Hyperlipidemia, unspecified; E03.9 Hypothyroidism, unspecified; I10 Essential (primary) hypertension; Z79.899 Other long term (current) drug therapy; Z51.81 Encounter for therapeutic drug level monitoring
CPT/HCPCS: 36415; 70450; 80053; 80061; 80307; 81003; 82607; 82746; 83036; 84443; 85025; 94640; 97165; 99285; S9485

== ENCOUNTER → 2024-08-17 11:34 | Outpatient (BNV) | payer MEDICAID, SELFPAY | PROVIDERS: Emergency Provider Emergency Medicine Emergency Medical Services; Visit Provider Psychiatry & Neurology Neurology | DX: G31.84 Mild cognitive impairment of uncertain or unknown etiology (principal) | CPT/HCPCS: 99282 ==

== ENCOUNTER → 2024-08-17 11:34 | Outpatient (BNV) | payer OTHER, SELFPAY | PROVIDERS: Emergency Provider Emergency Medicine; Visit Provider Social Worker | DX: F33.1 Major depressive disorder, recurrent, moderate (principal); F10.20 Alcohol dependence, uncomplicated | CPT/HCPCS: 99284; 99285 ==